=== PATIENT | female | born 2000 | race American Indian/Alaskan Native ===

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

== ENCOUNTER 2020-08-12 23:29 | Emergency (ER) | payer MEDICAID, OTHER ==
[2020-08-13 00:38] VITALS: BP 119/70
--- NOTE | 2020-08-13 01:12 | Emergency Department Report ---
ED Abdominal Pain HPI - General Chief Complaint: Abdominal Pain Stated Complaint: ABDOMINAL PAIN Time Seen by Provider: 08/13/20 01:05 Source: patient, family Mode of arrival: Ambulatory Limitations: No Limitations - History of Present Illness Initial Comments: Patient is a 20-year-old -[place] female who presents with mother for abdominal pain radiating to right lower quadrant x4 days this episode, with history of recurring issue for the past month. Pain described as 5/10 sharp and achy. Patient was seen at walk-in clinic 4 days ago diagnosed with UTI. Prescribed Bactrim with no improvement in symptoms. Patient denies fevers or chills however there is nausea no vomiting. Last menstrual cycle was 1 month ago. Patient endorses not being sexually active. Patient has additional medical history to include depression. Last p.o. intake was 2 hours ago without nausea vomiting. MD Complaint: abdominal pain - Related Data Home Medications Medication Instructions Recorded Confirmed Last Taken Mirtazapine 15 mg PO HS 11/17/18 11/17/18 Unknown cloNIDine 0.1 mg PO HS 11/17/18 11/17/18 Unknown risperiDONE 4 mg PO HS 11/17/18 11/17/18 Unknown Previous Rx's Medication Instructions Recorded Last Taken Type Ibuprofen [Motrin 600 MG tab] 600 mg PO Q8H PRN #15 tablet 08/13/20 Unknown Rx Nitrofurantoin Trinity/M-Cryst 100 mg PO BID 7 Days #14 capsule 08/13/20 Unknown Rx [Macrobid CAP] Phenazopyridine [Pyridium] 100 mg PO TID 2 Days #6 tab 08/13/20 Unknown Rx Allergies Allergy/AdvReac Type Severity Reaction Status Date / Time No Known Allergies Allergy Unverified 04/08/18 02:55 ED Review of Systems ROS: Stated complaint: ABDOMINAL PAIN Other details as noted in HPI Constitutional: malaise. denies: chills, fever Eyes: denies: eye pain, eye discharge, vision change ENT: denies: ear pain, throat pain Respiratory: denies: cough, shortness of breath, wheezing Cardiovascular: denies: chest pain, palpitations Endocrine: no symptoms reported Gastrointestinal: abdominal pain, nausea. denies: vomiting, diarrhea, constipation, melena Genitourinary: urgency, dysuria, frequency. denies: hematuria, discharge Musculoskeletal: denies: back pain Skin: denies: rash, lesions Neurological: denies: headache, weakness, paresthesias, vertigo Psychiatric: denies: anxiety Hematological/Lymphatic: denies: easy bleeding, easy bruising ED Past Medical Hx - Past Medical History Previous Medical History?: No Hx Psychiatric Treatment: Yes (Bipolar, schizophrenia) - Surgical History Past Surgical History?: No - Social History Smoking Status: Never Smoker Substance Use Type: None - Medications Home Medications: Home Medications Medication Instructions Recorded Confirmed Last Taken Type Mirtazapine 15 mg PO HS 11/17/18 11/17/18 Unknown History cloNIDine 0.1 mg PO HS 11/17/18 11/17/18 Unknown History risperiDONE 4 mg PO HS 11/17/18 11/17/18 Unknown History Ibuprofen [Motrin 600 MG tab] 600 mg PO Q8H PRN #15 tablet 08/13/20 Unknown Rx Nitrofurantoin Trinity/M-Cryst 100 mg PO BID 7 Days #14 capsule 08/13/20 Unknown Rx [Macrobid CAP] Phenazopyridine [Pyridium] 100 mg PO TID 2 Days #6 tab 08/13/20 Unknown Rx ED Physical Exam - General Limitations: No Limitations General appearance: alert, in no apparent distress - Head Head exam: Present: atraumatic, normocephalic - Eye Eye exam: Present: normal appearance, EOMI Pupils: Present: normal accommodation - ENT ENT exam: Present: mucous membranes moist - Neck Neck exam: Present: normal inspection, full ROM. Absent: tenderness - Respiratory Respiratory exam: Present: normal lung sounds bilaterally. Absent: respiratory distress, chest wall tenderness - Cardiovascular Cardiovascular Exam: Present: regular rate, normal rhythm, normal heart sounds. Absent: systolic murmur, diastolic murmur, rubs, gallop - GI/Abdominal GI/Abdominal exam: Present: soft, tenderness (LUQ ), normal bowel sounds. Absent: distended, guarding, rebound, rigid, bruit, hernia - Expanded GI/Abdominal Exam Expanded GI/Abdominal exam: Absent: psoas sign, obturator sign, heel tap sign, Moran's sign, Rovsing's sign, tenderness at Mcburney's Point, ascites - Rectal Rectal exam: Present: deferred - Extremities Exam Extremities exam: Present: normal inspection, full ROM. Absent: tenderness - Back Exam Back exam: Present: normal inspection, full ROM. Absent: tenderness, CVA tenderness (R), CVA tenderness (L) - Neurological Exam Neurological exam: Present: alert, oriented X3, CN II-XII intact, normal gait - Psychiatric Psychiatric exam: Present: normal affect, normal mood - Skin Skin exam: Present: warm, dry, intact, normal color. Absent: rash ED Course Vital Signs 08/12/20 23:37 Temperature 98.7 F Pulse Rate 108 H Respiratory 18 Rate Blood Pressure 119/70 O2 Sat by Pulse 100 Oximetry ED Medical Decision Making - Lab Data Result diagrams: 08/13/20 01:24 08/13/20 01:24 Labs 08/13/20 08/13/20 08/13/20 01:07 01:24 01:24 WBC 6.0 RBC 4.00 Hgb 12.5 Hct 36.5 MCV 91 MCH 31 MCHC 34 RDW 12.6 L Plt Count 172 Lymph % (Auto) 42.5 H Trinity % (Auto) 10.2 H Eos % (Auto) 4.7 H Baso % (Auto) 1.2 Lymph # (Auto) 2.5 Trinity # (Auto) 0.6 Eos # (Auto) 0.3 Baso # (Auto) 0.1 Seg Neutrophils % 41.4 Seg Neutrophils # 2.5 Sodium 136 L Potassium 4.6 Chloride 106.2 Carbon Dioxide 22 Anion Gap 12 BUN 10 Creatinine 0.8 Estimated GFR > 60 BUN/Creatinine Ratio 13 Glucose 86 Calcium 8.8 Total Bilirubin < 0.20 AST 15 ALT 10 Alkaline Phosphatase 54 Total Protein 6.9 Albumin 3.9 Albumin/Globulin Ratio 1.3 Lipase 31 Urine Color Yellow Urine Turbidity Clear Urine pH 7.0 Ur Specific Ericson 1.015 Urine Protein <15 mg/dl Urine Glucose (UA) Neg Urine Ketones Neg Urine Blood Neg Urine Nitrite Neg Urine Bilirubin Neg Urine Urobilinogen < 2.0 Ur Leukocyte Esterase Lg Urine WBC (Auto) 17.0 H Urine RBC (Auto) 17.0 U Epithel Cells (Auto) 5.0 Urine Bacteria (Auto) 1+ Urine Mucus Few Urine HCG, Qual Negative - Medical Decision Making ua consistant with UTI, pt is tolerating po hydration, will hyrate , capellan abx to macrobid, will advise if sensitivity requires additional or different abx c overage, hcg is negative, there is no fever or chills. pt dc'd in stable condition at this time, will follow up with pcp in 2-3 days, return to ed if symptoms worsen. Critical care attestation.: If time is entered above; I have spent that time in minutes in the direct care of this critically ill patient, excluding procedure time. ED Disposition Clinical Impression: UTI (urinary tract infection) Qualifiers: Urinary tract infection type: acute cystitis Hematuria presence: without hematuria Qualified Code(s): N30.00 - Acute cystitis without hematuria Disposition: TO HOME OR SELFCARE Is pt being admited?: No Does the pt Need Aspirin: No Condition: Stable Instructions: Abdominal Pain (ED), Urinary Tract Infection, Adult Prescriptions: Nitrofurantoin Trinity/M-Cryst [Macrobid CAP] 100 mg PO BID 7 Days #14 capsule Ibuprofen [Motrin 600 MG tab] 600 mg PO Q8H PRN #15 tablet PRN Reason: Pain Phenazopyridine [Pyridium] 100 mg PO TID 2 Days #6 tab Referrals: LOAN CABALLERO MD [Primary Care Provider] - 3-5 Days Forms: Work/School Release Form(ED) Time of Disposition: 03:03
[2020-08-13 01:23] LABS: Bacteria,Urine 1+ /HPF (Negative); Bilirubin,Urine NEG (Negative); Blood,Urine NEG (Negative); Color,Urine Yellow (Yellow); Mucus,Urine FEW /HPF; Protein,Urine <15 mg/dL mg/dL (Negative); Urobilinogen,Urine < 2.0 mg/dL (<2.0)
[2020-08-13 01:30] LABS: HCG Qualitative,Urine Negative (Negative)
[2020-08-13 02:06] LABS: Alanine Aminotransferase 10 units/L (7-56); Albumin 3.9 g/dL (3.9-5); BUN/Creatinine Ratio 13; Blood Urea Nitrogen 10 mg/dL (7-17); Calcium 8.8 mg/dL (8.4-10.2); Hemolysis Index 9
[2020-08-13 02:07] LABS: Basophils # (Auto) 0.1 K/mm3 (0.0-0.1); Basophils % (Auto) 1.2 % (0.0-1.8); Eosinophils # (Auto) 0.3 K/mm3 (0.0-0.4); Eosinophils % (Auto) 4.7 % (0.0-4.3); Hematocrit 36.5 % (30.3-42.9); Hemoglobin 12.5 gm/dl (10.1-14.3); Lymphocytes # (Auto) 2.5 K/mm3 (1.2-5.4); Lymphocytes % (Auto) 42.5 % (13.4-35.0); Mean Corpuscular HGB Conc 34 % (30-34); Mean Corpuscular Volume 91 fl (79-97); Monocytes # (Auto) 0.6 K/mm3 (0.0-0.8); Monocytes % (Auto) 10.2 % (0.0-7.3); Platelet Count 172 K/mm3 (140-440); Red Cell Distribution Width 12.6 % (13.2-15.2)
[2020-08-13] MEDS ORDERED: NITROFURANTOIN MONOHYD/M-CRYST 100 MG CAP PO ONE (02:44)
[2020-08-13] MEDS ORDERED: IBUPROFEN 600 MG TAB PO ONE (02:44)
== END 2020-08-13 03:10 | disposition home or self-care (01) ==
LOC: ED 23:29
DX: N39.0 Urinary tract infection, site not specified (principal); F32.9 Major depressive disorder, single episode, unspecified; F20.9 Schizophrenia, unspecified; Z79.899 Other long term (current) drug therapy
CPT/HCPCS: 36415; 80053; 81001; 81025; 83690; 85025; 87086; 99283

== ENCOUNTER 2020-09-17 14:52 | Emergency (ER) | payer MEDICAID, OTHER ==
--- NOTE | 2020-09-17 15:15 | Event Note ---
ED Screening Note Date of service: 09/17/20 Time: 15:14 ED Screening Note: Patient complains of drowsiness after taking for 800 mg tablets of ibuprofen accidentally Patient states she thought they were 200 mg Denies SI/HI This initial assessment/diagnostic orders/clinical plan/treatment(s) is/are subject to change based on patients health status, clinical progression and re- assessment by fellow clinical providers in the ED. Further treatment and workup at subsequent clinical providers discretion. Patient/guardian urged not to elope from the ED as their condition may be serious if not clinically assessed and managed. Initial orders include: Labs
[2020-09-17] MEDS ORDERED: charcoal activated SOLUTION 25 GM/120 ML PO ONE (16:06)
--- NOTE | 2020-09-17 17:00 | Emergency Department Report ---
History of Present Illness - General Chief Complaint: Overdose Stated Complaint: TOOK TOO MANY IBRUPROFEN BY ACCIDENT Time Seen by Provider: 09/17/20 16:55 Source: patient Mode of arrival: Ambulatory Limitations: No Limitations - History of Present Illness Initial Comments: Patient is a 20-year-old female that presents emergency room for an accidental o verdose of ibuprofen. Patient denies suicidal ideation. Patient denies depression. Patient denies any thoughts of hurting herself. Patient denies homicidal ideation. Patient denies anxiety. Patient denies any pain. Patient denies headache. Patient denies GI symptoms. Patient denies abdominal pain. Patient states she normally takes for 200 mg ibuprofen and she accidentally took her mom's 800 mg tablets and took 4 of them. Patient states she was taking the ibuprofen for headache and menstrual cramps. Patient states that her headache and menstrual cramps have resolved with the ibuprofen. Patient denies blurry vision. Patient denies recent travel. Patient denies recent international travel. Patient denies exposure to the novel coronavirus. Patient denies sick contacts. Patient denies fever and chills. Patient denies cough. Patient denies diarrhea. Patient denies coming in contact with anybody with symptoms of the novel coronavirus. Complaint: accidental overdose -: Sudden Intent: other How Overdose Was Discovered: called family/friend Context: Accidental Overdose: medication error Treatments Prior to Arrival: none - Related Data Home Medications Medication Instructions Recorded Confirmed Last Taken Mirtazapine 15 mg PO HS 11/17/18 11/17/18 Unknown cloNIDine 0.1 mg PO HS 11/17/18 11/17/18 Unknown risperiDONE 4 mg PO HS 11/17/18 11/17/18 Unknown Previous Rx's Medication Instructions Recorded Last Taken Type Ibuprofen [Motrin 600 MG tab] 600 mg PO Q8H PRN #15 tablet 08/13/20 Unknown Rx Nitrofurantoin [place]/M-Cryst 100 mg PO BID 7 Days #14 capsule 08/13/20 Unknown Rx [Macrobid CAP] Phenazopyridine [Pyridium] 100 mg PO TID 2 Days #6 tab 08/13/20 Unknown Rx Allergies Allergy/AdvReac Type Severity Reaction Status Date / Time No Known Allergies Allergy Verified 09/17/20 15:18 ED Review of Systems ROS: Stated complaint: TOOK TOO MANY IBRUPROFEN BY ACCIDENT Other details as noted in HPI Constitutional: denies: chills, fever Eyes: denies: eye pain, eye discharge, vision change ENT: denies: ear pain, throat pain Respiratory: denies: cough, shortness of breath, wheezing Cardiovascular: denies: chest pain, palpitations Endocrine: no symptoms reported Gastrointestinal: denies: abdominal pain, nausea, diarrhea Genitourinary: denies: urgency, dysuria, discharge Musculoskeletal: denies: back pain, joint swelling, arthralgia Skin: denies: rash, lesions Neurological: denies: headache, weakness, paresthesias Psychiatric: denies: anxiety, depression, auditory hallucinations, visual hallucinations, homicidal thoughts, suicidal thoughts Hematological/Lymphatic: denies: easy bleeding, easy bruising ED Past Medical Hx - Past Medical History Previous Medical History?: Yes Hx Psychiatric Treatment: Yes (Bipolar, schizophrenia, ADHD, depression, anxiety) Additional medical history: intellectual disability - Surgical History Past Surgical History?: No - Family History Family history: no significant - Social History Smoking Status: Never Smoker Substance Use Type: None - Medications Home Medications: Home Medications Medication Instructions Recorded Confirmed Last Taken Type Mirtazapine 15 mg PO HS 11/17/18 11/17/18 Unknown History cloNIDine 0.1 mg PO HS 11/17/18 11/17/18 Unknown History risperiDONE 4 mg PO HS 11/17/18 11/17/18 Unknown History Ibuprofen [Motrin 600 MG tab] 600 mg PO Q8H PRN #15 tablet 08/13/20 Unknown Rx Nitrofurantoin [place]/M-Cryst 100 mg PO BID 7 Days #14 capsule 08/13/20 Unknown Rx [Macrobid CAP] Phenazopyridine [Pyridium] 100 mg PO TID 2 Days #6 tab 08/13/20 Unknown Rx ED Physical Exam - General Limitations: No Limitations General appearance: alert, in no apparent distress - Head Head exam: Present: atraumatic, normocephalic - Eye Eye exam: Present: normal appearance - ENT ENT exam: Present: mucous membranes moist - Neck Neck exam: Present: normal inspection - Respiratory Respiratory exam: Present: normal lung sounds bilaterally. Absent: respiratory distress, wheezes, rales - Cardiovascular Cardiovascular Exam: Present: regular rate, normal rhythm. Absent: systolic murmur, diastolic murmur, rubs, gallop - GI/Abdominal GI/Abdominal exam: Present: soft, normal bowel sounds. Absent: distended, tenderness, guarding - Extremities Exam Extremities exam: Present: normal inspection - Back Exam Back exam: Present: normal inspection - Neurological Exam Neurological exam: Present: alert, oriented X3 - Psychiatric Psychiatric exam: Present: flat affect - Skin Skin exam: Present: warm, dry, intact, normal color. Absent: rash ED Course Vital Signs 09/17/20 09/17/20 09/17/20 15:12 17:38 20:31 Temperature 98.7 F Pulse Rate 96 H 88 106 H Respiratory 18 16 22 Rate Blood Pressure 98/62 Blood Pressure 119/70 96/52 [Right] O2 Sat by Pulse 98 100 98 Oximetry - Reevaluation(s) Reevaluation #1: Patient denies pain. Patient denies GI symptoms. Patient denies abdominal pain. No change in mental status. Vital signs are stable. 09/17/20 17:47 Reevaluation #2: Patient denies pain. Patient denies GI symptoms. 09/17/20 18:47 Reevaluation #3: I discussed all results and clinical findings with patient. I discussed plan of care with patient. Patient agrees with plan of care. Patient is stable for discharge. Patient will be discharged home. Patient given discharge instructions. Patient voiced understanding of discharge instructions. 09/17/20 20:48 - Consultations Consultation #1: Poison control was consulted. Below is the recommendations and consult note. FABBY BALTAZAR Female : 2000 MedRec# [id number] 09/17/20 16:02 - Nurse Note by PARESH MAN Acct Num: [id number] : 2000 Patient Age: 20 Addendum entered by PARESH MAN RN 09/17/20 16:19: [place] [facility] [phone] Original Note: Spoke with Duke Potter @ 1522 [place] [facility] Verbal Orders: Activated Charcoal 50mg, add acetaminophen, blood alcohol, salicytate, U/A, UDS, HCG urine Side Effects: GI symptoms, drowsiness, metabolic acidosis Recommendations: Observe 4-6 hours, give protonix for GI symptoms (upon ED MD discretion), venous blood gas if GI symptoms worsen Notified LASHAUN Archuleta Initialized on 09/17/20 16:02 - END OF NOTE 09/17/20 16:59 Consultation #2: Second recommendations. As below FABBY BALTAZAR Female : 2000 MedRec# [id number] 09/17/20 16:02 - Nurse Note by PARESH MAN Acct Num: [id number] : 2000 Patient Age: 20 Addendum entered by VIRY COLMENARES 09/17/20 20:37: [facility] [phone] Spoke with [facility] Has no further recomendations unless there is a psych concern 4 - 800 mg is the max daily dose, no apparent acidosis, 09/17/20 20:48 ED Medical Decision Making - Lab Data Result diagrams: 09/17/20 15:32 09/17/20 15:32 - Medical Decision Making Patient is a 20-year-old female that presents emergency room with complaints of an accidental overdose with ibuprofen.. Patient took 4 tabs of 800 mg ibuprofen. Patient was taken for headache. Patient denies suicidal ideation. There is no psych concern had mental health see the patient just to verify that there was no mental health instability. Poison control was consulted and initial recommendations were received. After the patient was monitored for the 46-hour period, poison control was recontacted and given update. When I saw states there is no further concern the patient is stable to be discharged. Patient stable for discharge. Patient will be discharged home. Patient be discharged home with mother. Patient's labs are essentially unremarkable. Critical care time documented due to the multiple reassessments, prolonged time at the bedside, interpretation of diagnostics and labs. - Differential Diagnosis Overdose, acidosis, electrolyte imbalance, dehydration Critical Care Time: Yes Critical care time in (mins) excluding proc time.: 45 Critical care attestation.: If time is entered above; I have spent that time in minutes in the direct care of this critically ill patient, excluding procedure time. Critical Care Time: 45 minutes ED Disposition Clinical Impression: Overdose Qualifiers: Encounter type: initial encounter Injury intent: accidental or unintentional Qualified Code(s): T50.901A - Poisoning by unspecified drugs, medicaments and biological substances, accidental (unintentional), initial encounter Disposition: DC-01 TO HOME OR SELFCARE Is pt being admited?: No Does the pt Need Aspirin: No Condition: Stable Instructions: Accidental Drug Poisoning, Adult Additional Instructions: Patient to follow-up with primary care in 2 to 3 days. Patient to avoid ibuprofen. Patient to eat a low-salt diet. Patient to rest. Patient to increase water. Patient to take Tylenol as needed for pain. Patient to return to the ER if condition worsens, changes or new symptoms arise. OUTPATIENT MENTAL HEALTH RESOURCES [facility], [facility] Zara Montano MD: [address] [place] [address] [place], [place] [id number] [place] [facility]: [employer] [facility] [address] [place] [address] [place] [address] [phone] [facility]: [facility]: [address] [facility] [address] [facility] [place] [address] [facility] [id number] [facility]: Eder Peñaloza MD: [address] [facility] [address] [facility] [id number] [facility]: [address] [place], [place] [id number] [phone] [place] CRISIS AND ACCESS LINE: Referrals: LOAN CABALLERO MD [Primary Care Provider] - 2-3 Days Time of Disposition: 20:50
[2020-09-17 17:01] LABS: Basophils % (Auto) 0.7 % (0.0-1.8); Eosinophils # (Auto) 0.3 K/mm3 (0.0-0.4); Eosinophils % (Auto) 4.8 % (0.0-4.3); Hemoglobin 12.9 gm/dl (10.1-14.3); Lymphocytes # (Auto) 2.2 K/mm3 (1.2-5.4); Lymphocytes % (Auto) 31.1 % (13.4-35.0); Mean Corpuscular HGB Conc 34 % (30-34); Mean Corpuscular Volume 93 fl (79-97); Monocytes # (Auto) 0.5 K/mm3 (0.0-0.8); Monocytes % (Auto) 6.6 % (0.0-7.3); Platelet Count 189 K/mm3 (140-440); Red Blood Count 4.11 M/mm3 (3.65-5.03); Red Cell Distribution Width 12.8 % (13.2-15.2)
[2020-09-17 17:19] LABS: Alanine Aminotransferase 11 units/L (7-56); Albumin 4.5 g/dL (3.9-5); Blood Urea Nitrogen 11 mg/dL (7-17); Calcium 9.5 mg/dL (8.4-10.2); Hemolysis Index 5
[2020-09-17 17:19] LABS: Amphetamine Screen,Urine Negative; Benzodiazepines Screen,Urine Negative; Cannabinoid Screen,Urine Negative; Cocaine Screen,Urine Negative; Methadone Screen,Urine Negative; Opiate Screen,Urine Negative
[2020-09-17 17:21] LABS: Bilirubin,Urine NEG (Negative); Blood,Urine NEG (Negative); Color,Urine Yellow (Yellow); Protein,Urine <15 mg/dL mg/dL (Negative); Urobilinogen,Urine < 2.0 mg/dL (<2.0)
[2020-09-17 17:22] LABS: HCG Qualitative,Urine Negative (Negative)
[2020-09-17 17:23] LABS: BUN/Creatinine Ratio 16
[2020-09-17 20:32] VITALS: BP 96/52
== END 2020-09-17 21:20 | disposition home or self-care (01) ==
LOC: ED 14:52
DX: T50.901A Poisoning by unspecified drugs, medicaments and biological substances, accidental (unintentional), initial encounter (principal); F25.0 Schizoaffective disorder, bipolar type; F41.9 Anxiety disorder, unspecified; Z79.899 Other long term (current) drug therapy
CPT/HCPCS: 36415; 80053; 80307; 80320; 81001; 81025; 85025; 87086; 99283; G0480

== ENCOUNTER 2020-11-25 20:19 | Emergency (ER) | payer MEDICAID ==
[2020-11-25 23:39] VITALS: BP 104/60
[2020-11-26 00:49] LABS: Basophils % (Auto) 0.7 % (0.0-1.8); Eosinophils # (Auto) 0.2 K/mm3 (0.0-0.4); Hematocrit 39.3 % (30.3-42.9); Hemoglobin 12.8 gm/dl (10.1-14.3); Lymphocytes # (Auto) 2.4 K/mm3 (1.2-5.4); Lymphocytes % (Auto) 45.6 % (13.4-35.0); Mean Corpuscular HGB Conc 33 % (30-34); Mean Corpuscular Volume 90 fl (79-97); Monocytes # (Auto) 0.3 K/mm3 (0.0-0.8); Monocytes % (Auto) 5.6 % (0.0-7.3); Platelet Count 215 K/mm3 (140-440); Red Blood Count 4.35 M/mm3 (3.65-5.03); Red Cell Distribution Width 12.7 % (13.2-15.2)
[2020-11-26 00:50] LABS: Blood Urea Nitrogen 7 mg/dL (7-17); Calcium 9.4 mg/dL (8.4-10.2); Hemolysis Index 4
[2020-11-26] MEDS ORDERED: ONDANSETRON 4 MG/2 ML INJ IV ONE (00:56)
[2020-11-26] MEDS ORDERED: DICYCLOMINE 20 MG/2 ML INJ IM ONE (00:56)
[2020-11-26] MEDS ORDERED: SODIUM CHLORIDE 0.9% 1000 ML 1,000 ML IV ONE (00:56)
[2020-11-26 00:57] LABS: BUN/Creatinine Ratio 12
--- NOTE | 2020-11-26 01:07 | Emergency Department Report ---
ED Abdominal Pain HPI - General Chief Complaint: Abdominal Pain Stated Complaint: SEVERE DIARRHEA/DIZZY Time Seen by Provider: 11/26/20 00:58 Source: patient Mode of arrival: Ambulatory Limitations: Other - History of Present Illness Initial Comments: Section patient is a 28-year-old -Indian female with a history of IBS. Who presents for abdominal pain cramping and chronic diarrhea for the last year. Patient is followed by the GI Dr. Granados, states she cannot get follow-up appointment until January 10, 2021. Symptoms include abdominal pain and cramping. Last menstrual cycle 2 weeks ago. Pt is not sexually active. Is patient denies fever, chills, vomiting, there is positive nausea. Symptoms are relieved by nothing. Symptoms are exacerbated by p.o. intake. MD Complaint: abdominal pain Migration to: no migration - Related Data Home Medications Medication Instructions Recorded Confirmed Last Taken Mirtazapine 15 mg PO HS 11/17/18 11/17/18 Unknown cloNIDine 0.1 mg PO HS 11/17/18 11/17/18 Unknown risperiDONE 4 mg PO HS 11/17/18 11/17/18 Unknown Previous Rx's Medication Instructions Recorded Last Taken Type Ibuprofen [Motrin 600 MG tab] 600 mg PO Q8H PRN #15 tablet 08/13/20 Unknown Rx Nitrofurantoin [place]/M-Cryst 100 mg PO BID 7 Days #14 capsule 08/13/20 Unknown Rx [Macrobid CAP] Phenazopyridine [Pyridium] 100 mg PO TID 2 Days #6 tab 08/13/20 Unknown Rx Dicyclomine [Bentyl] 10 mg PO QID PRN #30 capsule 11/26/20 Unknown Rx Famotidine [Pepcid] 20 mg PO BID #30 tablet 11/26/20 Unknown Rx Ondansetron [Zofran Odt] 4 mg PO Q8HR PRN #15 tab.rapdis 11/26/20 Unknown Rx Allergies Allergy/AdvReac Type Severity Reaction Status Date / Time No Known Allergies Allergy Verified 09/17/20 15:18 ED Review of Systems ROS: Stated complaint: SEVERE DIARRHEA/DIZZY Other details as noted in HPI Constitutional: malaise. denies: chills, fever Eyes: denies: eye pain, eye discharge, vision change ENT: denies: ear pain, throat pain Respiratory: denies: cough, shortness of breath, wheezing Cardiovascular: denies: chest pain, palpitations Endocrine: no symptoms reported Gastrointestinal: abdominal pain, nausea, diarrhea. denies: constipation, hematemesis, melena Genitourinary: denies: urgency, dysuria, frequency, hematuria, discharge Musculoskeletal: denies: back pain Skin: denies: rash, lesions Neurological: denies: headache, weakness, paresthesias, vertigo Psychiatric: denies: anxiety, depression Hematological/Lymphatic: denies: easy bleeding, easy bruising ED Past Medical Hx - Past Medical History Previous Medical History?: No Hx Psychiatric Treatment: Yes (Bipolar, schizophrenia, ADHD, depression, anxiety) Additional medical history: intellectual disability - Surgical History Past Surgical History?: No - Social History Smoking Status: Never Smoker - Medications Home Medications: Home Medications Medication Instructions Recorded Confirmed Last Taken Type Mirtazapine 15 mg PO HS 11/17/18 11/17/18 Unknown History cloNIDine 0.1 mg PO HS 11/17/18 11/17/18 Unknown History risperiDONE 4 mg PO HS 11/17/18 11/17/18 Unknown History Ibuprofen [Motrin 600 MG tab] 600 mg PO Q8H PRN #15 tablet 08/13/20 Unknown Rx Nitrofurantoin [place]/M-Cryst 100 mg PO BID 7 Days #14 capsule 08/13/20 Unknown Rx [Macrobid CAP] Phenazopyridine [Pyridium] 100 mg PO TID 2 Days #6 tab 08/13/20 Unknown Rx Dicyclomine [Bentyl] 10 mg PO QID PRN #30 capsule 11/26/20 Unknown Rx Famotidine [Pepcid] 20 mg PO BID #30 tablet 11/26/20 Unknown Rx Ondansetron [Zofran Odt] 4 mg PO Q8HR PRN #15 tab.rapdis 11/26/20 Unknown Rx ED Physical Exam - General Limitations: Other General appearance: alert - Head Head exam: Present: atraumatic, normocephalic - Eye Eye exam: Present: normal appearance, PERRL, EOMI Pupils: Present: normal accommodation - ENT ENT exam: Present: normal exam, mucous membranes moist - Neck Neck exam: Present: normal inspection - Respiratory Respiratory exam: Present: normal lung sounds bilaterally. Absent: respiratory distress, wheezes, stridor, chest wall tenderness - Cardiovascular Cardiovascular Exam: Present: regular rate, normal rhythm, normal heart sounds. Absent: systolic murmur, diastolic murmur, rubs, gallop - GI/Abdominal GI/Abdominal exam: Present: soft, distended, tenderness (bilat lower abd tenderness ), normal bowel sounds. Absent: guarding, rebound, rigid, bruit, hernia - Rectal Rectal exam: Present: deferred - Extremities Exam Extremities exam: Present: normal inspection, full ROM, normal capillary refill. Absent: tenderness - Back Exam Back exam: Present: normal inspection, full ROM. Absent: CVA tenderness (R), CVA tenderness (L) - Neurological Exam Neurological exam: Present: alert, oriented X3, CN II-XII intact, normal gait - Expanded Neurological Exam Expanded Patient oriented to: Present: person, place, time Speech: Present: fluid speech Motor strength exam: RUE: 5, LUE: 5, RLE: 5, LLE: 5 Best Eye Response ([place]): (4) open spontaneously Best Motor Response ([place]): (6) obeys commands Best Verbal Response ([place]): (5) oriented Dana Total: 15 - Psychiatric Psychiatric exam: Present: normal affect, normal mood - Skin Skin exam: Present: warm, dry, intact, normal color. Absent: rash ED Course Vital Signs 11/25/20 23:18 Temperature 97.8 F Pulse Rate 85 Respiratory 16 Rate Blood Pressure 104/60 O2 Sat by Pulse 99 Oximetry ED Medical Decision Making - Lab Data Result diagrams: 11/25/20 23:56 11/25/20 23:56 - Medical Decision Making Symptoms resolved with medications given in ED plan DC to self. . Patient will follow up with GI as scheduled. Patient will return to ED should symptoms worsen or return. Patient is currently alert oriented x3, tolerating p.o. intake without symptoms, there is no diarrhea, no fever no chills. Critical care attestation.: If time is entered above; I have spent that time in minutes in the direct care of this critically ill patient, excluding procedure time. ED Disposition Clinical Impression: History of IBS Abdominal pain Qualifiers: Abdominal location: lower abdomen, unspecified Qualified Code(s): R10.30 - Lower abdominal pain, unspecified Disposition: DC-01 TO HOME OR SELFCARE Is pt being admited?: No Does the pt Need Aspirin: No Condition: Stable Instructions: Abdominal Pain (ED), Abdominal Pain, Adult, [id number], Irritable Bowel Syndrome, Adult, Diet for Irritable Bowel Syndrome Additional Instructions: continue Bentyl and zofran as oreded by your doctor Take medications as prescribed, hydrate as directed, follow-up with gastroenterology as scheduled, Dr. Granados. Return to emergency department should symptoms worsen. Prescriptions: Dicyclomine [Bentyl] 10 mg PO QID PRN #30 capsule PRN Reason: abdominal spasm Famotidine [Pepcid] 20 mg PO BID #30 tablet Ondansetron [Zofran Odt] 4 mg PO Q8HR PRN #15 tab.rapdis PRN Reason: Nausea And Vomiting Referrals: LOAN CABALLERO MD [Primary Care Provider] - 3-5 Days Forms: Work/School Release Form(ED) Time of Disposition: 04:48
== END 2020-11-26 05:08 | disposition home or self-care (01) ==
LOC: ED 20:19
DX: K58.9 Irritable bowel syndrome, unspecified (principal); R10.30 Lower abdominal pain, unspecified; F31.9 Bipolar disorder, unspecified; F20.9 Schizophrenia, unspecified; Z79.1 Long term (current) use of non-steroidal anti-inflammatories (NSAID); Z79.899 Other long term (current) drug therapy
CPT/HCPCS: 36415; 80048; 85025; 96361; 96372; 96374; 99283; J0500; J2405; J7030